=== PATIENT | female | born 1935 | race Caucasian/White ===

== ENCOUNTER 2018-10-25 12:13 | Inpatient (IN) | payer MEDICARE ==
[2018-10-25] MEDS: SOD CHLORIDE 0.9% 1,000 ML IV (13:13)
[2018-10-25 13:25] LABS: ADD MAN DIFF? NO
[2018-10-25 13:29] LABS: BASOPHIL # 0.1 10^3/ul (0.0-0.1); EOSINOPHILS # 0.5 10^3/ul (0.0-0.5); EOSINOPHILS % 5.8 % (0.0-7.0); HEMOGLOBIN 12.4 g/dl (12.0-16.0); LYMPHOCYTES # 2.3 10^3/ul (0.8-2.9); LYMPHOCYTES % 27.8 % (15.0-51.0); MEAN CORPUSCULAR HEMOGLOBIN 28.2 pg (29.0-33.0); MEAN CORPUSCULAR HGB CONC 32.6 g/dl (32.0-37.0); MEAN CORPUSCULAR VOLUME 86.4 fl (82.0-101.0); MEAN PLATELET VOLUME 11.5 fl (7.4-10.4); MONOCYTE # 0.9 10^3/ul (0.3-0.9); MONOCYTES % 10.7 % (0.0-11.0); NEUTROPHIL # 4.4 10^3/ul (1.6-7.5); NEUTROPHILS % 54.3 % (39.0-77.0); PLATELET COUNT 177 10^3/UL (140-415); RED CELL DISTRIBUTION WIDTH 14.4 % (11.5-14.5)
[2018-10-25 13:29] LABS: WHITE BLOOD COUNT 8.1 10^3/ul (4.8-10.8)
[2018-10-25 13:47] LABS: ALANINE AMINOTRANSFERASE 29 IU/L (13-69); ALBUMIN 4.3 g/dl (3.3-4.9); ALBUMIN/GLOBULIN RATIO 1.38; ALKALINE PHOSPHATASE 43 IU/L (42-121); ANION GAP 10 (5-13); ASPARTATE AMINO TRANSFERASE 34 IU/L (15-46); BILIRUBIN,INDIRECT 0.7 mg/dl (0-1.1); BILIRUBIN,TOTAL 0.7 mg/dl (0.2-1.3); BLOOD UREA NITROGEN 23 mg/dl (7-20); CALCIUM 9.4 mg/dl (8.4-10.2); CARBON DIOXIDE 23 mmol/L (21-31); CHLORIDE 110 mmol/L (97-110); CREATININE 0.87 mg/dl (0.44-1.00); GLUCOSE 92 mg/dl (70-220); POTASSIUM 4.3 mmol/L (3.5-5.1); SODIUM 143 mmol/L (135-144); TOTAL PROTEIN 7.4 g/dl (6.1-8.1)
[2018-10-25] MEDS ORDERED: ONDANSETRON 4 MG INJ IV (16:00)
[2018-10-25] MEDS ORDERED: ACETAMINOPHEN 325 MG TAB PO (16:00)
[2018-10-25] MEDS: predniSONE 20 MG TAB PO (20:52)
[2018-10-25] MEDS: valACYclovir 500 MG TAB PO (21:00)
[2018-10-26] MEDS: LEVOTHYROXINE 75 MCG TAB PO (06:29)
[2018-10-26] MEDS: predniSONE 20 MG TAB PO (09:41)
[2018-10-26] MEDS: valACYclovir 500 MG TAB PO (09:43)
[2018-10-26] MEDS: ASPIRIN (EC) 325 MG TAB PO (09:43)
[2018-10-26] MEDS: METOPROLOL (XL) 100 MG TAB PO (09:44)
[2018-10-26 14:48] LABS: ADD UMIC NO; UR BILIRUBIN (Dip) NEGATIVE (NEGATIVE); UR BLOOD (Dip) NEGATIVE (NEGATIVE); UR CLARITY CLEAR (CLEAR); UR COLOR YELLOW (YELLOW); UR GLUCOSE (Dip) NEGATIVE (NEGATIVE); UR KETONES (Dip) NEGATIVE (NEGATIVE); UR LEUKOCYTE ESTERASE (Dip) NEGATIVE Leu/ul (NEGATIVE); UR NITRITE (Dip) NEGATIVE (NEGATIVE); UR SPECIFIC GRAVITY (Dip) 1.012 (1.003-1.030); UR TOTAL PROTEIN (Dip) NEGATIVE (NEGATIVE); UR UROBILINOGEN (Dip) NEGATIVE (NEGATIVE)
[2018-10-26 14:49] LABS: UR ASCORBIC ACID 40 mg/dL (NEGATIVE)
[2018-10-26 15:01] LABS: AMPHETAMINE/METHAMPHETAMINE Negative (NEGATIVE)
[2018-10-26 15:13] LABS: BARBITURATES Negative (NEGATIVE); BENZODIAZEPINES Negative (NEGATIVE); CANNABINOIDS Negative (NEGATIVE)
[2018-10-26 16:01] LABS: COCAINE Negative (NEGATIVE); OPIATES Negative (NEGATIVE)
[2018-10-27] MEDS ORDERED: ASPIRIN (EC) 81 MG TAB PO (09:00)
== END 2018-10-26 12:15 | disposition home or self-care (01) | DRG 74 ==
LOC: E/R 12:13 → 6WM 15:41
DX: G51.0 Bell's palsy (principal)
CPT/HCPCS: 36415; 70450; 70544; 70551; 71045; 80053; 80307; 81003; 85025; 93005; 99285-25